=== PATIENT | female | born 1950 | race Caucasian/White ===

== ENCOUNTER 2017-07-24 09:54 | Outpatient (CLI) | payer SELFPAY | END 2017-07-24 09:55 | disposition home or self-care (01) | LOC: LAB 09:54 | DX: Z01.89 Encounter for other specified special examinations (principal) | CPT/HCPCS: 36415 ==

== ENCOUNTER 2019-08-13 08:54 | Outpatient (CLI) | payer MEDICARE, BC ==
--- NOTE | 2019-08-13 20:06 | XRAY Report ---
Reason: WHEEZING Procedure Date: 08/13/2019 Accession Number: [id number] / [id number] Procedure: XR - Chest 2 View X-Ray CPT Code: 52359 FULL RESULT: EXAM: CHEST RADIOGRAPHY EXAM DATE: 08/13/2019 09:02 AM. CLINICAL HISTORY: WHEEZING. COMPARISON: None. TECHNIQUE: 2 views. FINDINGS: Lungs/Pleura: Peribronchial thickening which may be seen with reactive airways disease or bronchitis. No focal opacities evident. No pleural effusion. No pneumothorax. Normal volumes. Mediastinum: Heart and mediastinal contours are unremarkable. Other: Surgical clips upper abdomen. Degenerative change in the spine with lumbar levoscoliosis. Degenerative change in the shoulders. IMPRESSION: Changes which can be seen with bronchitis or reactive airways disease. No pneumonia. [facility]
== END 2019-08-13 08:55 | disposition home or self-care (01) ==
LOC: DI 08:54
PROVIDERS: ATTEND Internal Medicine
DX: R06.2 Wheezing (principal)
CPT/HCPCS: 71046

== ENCOUNTER 2020-08-13 12:43 | Outpatient (CLI) | payer MEDICARE, BC ==
[2020-08-13] MEDS ORDERED: IOVERSOL 320 100 ML VIAL IVP ONE ×2 (12:59→13:36)
--- NOTE | 2020-08-13 18:55 | CT Report ---
PROCEDURE: CHEST W INDICATIONS: CHRONIC ASTHMATIC BRONCHITIS CONTRAST: IV CONTRAST: Optiray 320 ml: 80 PO CONTRAST: *NO PO CONTRAST TECHNIQUE: After the administration of intravenous contrast, 5 mm thick sections acquired from the pulmonary api andrey to the posterior costophrenic angles. 7 mm thick coronal MIP reformats were acquired. For radia tion dose reduction, the following was used: automated exposure control, adjustment of mA and/or kV according to patient size. COMPARISON: Correlation is made with prior chest radiograph, 08/13/2019. FINDINGS: Image quality: Excellent. Lungs and pleura: No acute air space opacities. No pleural effusions or pneumothorax. Central and peripheral airways are patent and normal in caliber. Mediastinum: Heart size is normal. No pericardial effusion. No mediastinal or hilar adenopathy by size criteria. Thoracic aorta and central pulmonary arteries are normal in size. Esophagus is oliverio l in caliber. There is a small hiatal hernia. Bones and chest wall: No suspicious bony lesions. Age-appropriate degenerative changes are seen. T here is accentuated thoracic kyphosis. No vertebral body compression fractures. No axillary or long praclavicular adenopathy by size criteria. Thyroid gland is not definitely seen. Abdomen: Laparoscopic anchors are seen involving the anterior abdominal wall, with mesh placement. C holecystectomy clips are seen. Visualized upper abdominal solid organs appear normal. Upper abdomi nal bowel loops are normal in caliber. IMPRESSION: Clear lungs. Incidental note is made of: Thyroid not seen. Please correlate with prior history. Small hiatal hernia Cholecystectomy clips Anterior abdominal wall mesh placement, with laparoscopic anchors Reviewed by: Singh Walter MD on 08/13/2020 5:53 PM [facility] Approved by: Singh Walter MD on 08/13/2020 5:53 PM [facility] Station ID: [id number]
== END 2020-08-13 12:44 | disposition home or self-care (01) ==
LOC: DI 12:43
PROVIDERS: ATTEND Internal Medicine
DX: J44.9 Chronic obstructive pulmonary disease, unspecified (principal); K44.9 Diaphragmatic hernia without obstruction or gangrene
CPT/HCPCS: 71260; Q9967

== ENCOUNTER 2021-06-08 16:46 | Outpatient (CLI) | payer MEDICARE, BC | END 2021-06-08 16:47 | disposition home or self-care (01) | LOC: COV 16:46 | PROVIDERS: ATTEND Family Medicine | DX: Z20.822 Contact with and (suspected) exposure to COVID-19 (principal) ==

== ENCOUNTER 2023-10-15 14:20 | Outpatient (CLI) | payer MEDICARE, BC ==
--- NOTE | 2023-10-15 15:55 | XRAY Report ---
PROCEDURE: Foot 3+V RT (Weight Bearing) INDICATIONS: RIGHT FOOT PAIN TECHNIQUE: 3 views of the foot were acquired. COMPARISON: None. FINDINGS: Bones: There is normal bony alignment with weight bearing. Hallux valgus deformity/medial bunion. No fractures or dislocations. No suspicious bony lesions. Mild midfoot osteophytosis. Soft tissues: No tibiotalar joint effusion. No suspicious soft tissue calcifications. IMPRESSION: No acute bony abnormality. Medial bunion. Mild midfoot osteoarthritis. Reviewed by: Lissette Spangler MD, PhD on 10/15/2023 3:53 PM [facility] Approved by: Lissette Spangler MD, PhD on 10/15/2023 3:53 PM [facility] Station ID: [id number]
== END 2023-10-15 14:21 | disposition home or self-care (01) ==
LOC: DI 14:20
PROVIDERS: ATTEND Podiatrist
DX: M21.611 Bunion of right foot (principal); M19.071 Primary osteoarthritis, right ankle and foot